=== PATIENT | female | born 1970 | race Caucasian/White ===

== ENCOUNTER 2017-01-22 13:18 | Outpatient (CLI) | payer OTHER ==
[~2017-01-22] VITALS: Ht 152.4 cm; Wt 109.5 kg
[2017-01-22] MEDS ORDERED: AMIT10TA6 PO (13:42)
[2017-01-22] MEDS ORDERED: FER325 PO (13:42)
[2017-01-22] MEDS ORDERED: FLUN8.9H INH (13:42)
[2017-01-22] MEDS ORDERED: ALBU18HF INHALATION (13:42)
[2017-01-22] MEDS ORDERED: ASCO500C7 PO (13:42)
[2017-01-22] MEDS ORDERED: LORA10TA3 PO (13:42)
[2017-01-22 13:43] VITALS: BP 122/77; PULSE 70; RESP 18; Ht 152.4 cm; Wt 109.5 kg
--- NOTE | 2017-01-22 17:35 | CONS ---
Date/Time of Note Date/Time of Note DATE: 01/22/17 TIME: 17:30 Assessment/Plan Assessment/Plan Additional Assessment/Plan [facility] INITIAL OUTPATIENT CONSULTATION NOTE DATE OF CONSULTATION: 01/22/2017 PLACE OF SERVICE: [facility] ASSESSMENT AND PLAN: A very-pleasant 46-year-old lady with newly discovered hypermetabolic lesion in caudate lobe of her liver in the setting of recent diagnosis of appendiceal mucinous neoplasm. It would be somewhat unusual for the appendiceal mucinous neoplasm to have metastasized intrahepatically without obvious evidence of extrahepatic and peritoneal activity. Patient is also relatively early out from her initial surgical intervention, which again would argue against presence of metastatic disease. The described lesions in the MRI report appeared to be in the segment 4a of the liver which is away from the area of hypermetabolic uptake as I interpret the images. The caudate lobe area is not mentioned in the MRI. Because it is still possible that the patient may have intrahepatic metastasis, I have recommended further careful evaluation through the use of endoscopic ultrasound, which would allow us close visualization of the caudate lobe as well as possible fine-needle aspiration biopsy of the area for further clarification of the diagnosis. If this study is negative and we are still concerned about intrahepatic lesions, then a CT- guided or ultrasound-guided percutaneous liver biopsy may be needed. This can be sorted out further in our multidisciplinary tumor board presentation. With regards to the appendiceal mucinous neoplasm, I concur with Dr. Lantigua's assessments and recommendations. I do not recommend further surgical intervention at this time and the patient needs to be under careful surveillance for the next number of years. Of course, if the hepatic issues proved to be appendiceal mucinous neoplasm metastases, this would certainly change in the patient would be eligible for further aggressive therapy, that would be done at a center qualify to do these operations (e.g. [facility] or one of the nearby [facility] that has the program). I explained all of this to the patient (no family present during my discussions with the patient) carefully and answered all her questions to the best my ability. I also spent approximately 15 minutes in extra counseling regarding permanent change in lifestyle towards a healthier approach to food, better education about caloric needs, and importance of incorporation of consistent exercise in patient's daily routine. I believe that the patient understood and also agreed to attempt to implement. With above assessment, I've recommended the followin. Endoscopic ultrasound evaluation of caudate lobe with possible FNA biopsy 2. Multidisciplinary tumor board presentation 3. Further plans after above (e.g. possible need for additional percutaneous liver biopsy if indicated after above) 4. Continue careful follow-up as outlined by Dr. Lantigua 5. Lifestyle change as outlined above Thank you very much for having me involved in the care of this very pleasant patient and wonderful family. If you have any questions, please feel free to contact me at [phone]. Nature of presenting problem: High severity Please note that, given the extensive number of diagnoses or management options , the extensive amount and/or complexity of data needed to be reviewed, and high risk of complications and/or morbidity or mortality, this qualifies as high complexity type of decision-making. Disclaimer: Inadvertent spelling and grammatical errors are likely due to EHR/ dictation software use and do not reflect on the quality of delivered patient care. Also, please note that the electronic time recorded on this node does not necessarily reflect the actual time of the visit. Updated clinical summary: The patient is a very pleasant 46-year-old lady initially referred to [facility] and seen at [facility] for a newly discovered hypermetabolic lesion in caudate lobe of her liver in the setting of recent diagnosis of appendiceal mucinous neoplasm. Comorbidities: 1. Appendiceal mucinous neoplasm. CT scan performed May 2016 at [facility] showed dilated appendix in the right lower quadrant with features concerning for mucocele or appendiceal carcinoma. Status post laparoscopic appendectomy 06/15/[address] Oscar Santiago. 2. BMI 47.2 3. Migraine headaches 4. Asthma 5. Probable left ovarian cyst measuring 5 cm 6. Moderate depression 7. Mild anxiety 8. Left upper lobe lung nodule October 2016. Uncharacterized. 9. Vaginal bleeding after intercourse October 2016. CONSULTATION REQUESTED BY: Brian Lantigua MD HISTORY OF PRESENT ILLNESS: The patient is a very pleasant 46-year-old lady with above-mentioned comorbidities who were kindly asked consult regarding management of newly discovered hypermetabolic lesion in caudate lobe of her liver in the setting of recent diagnosis of appendiceal mucinous neoplasm. Patient originally presented with stabbing right upper quadrant pain since February 2016. CT scan performed May 2016 at [facility] showed dilated appendix in the right lower quadrant with features concerning for mucocele or appendiceal carcinoma. Status post laparoscopic appendectomy 06/15/[address] Oscar Chou. Surgical pathology showed a low- grade appendiceal mucinous neoplasm. There was extruded mucin noted within the wall and focal perforation with mucin at the distal tip. No evidence of invasive adenocarcinoma noted. Proximal margin exhibited extruded mucin within the muscular wall without evidence of adenomatous epithelium. Repeat CT scan of abdomen and pelvis 08/13/2016 at [facility] showed a limited examination secondary to lack of IV contrast, a probable left ovarian cyst measuring 5 cm, subcentimeter mesenteric lymph nodes in the mid and lower abdomen which was nonspecific findings and postsurgical changes adjacent to cecum and appendix surgery. MRI Abdomen October 2016 showed 3 small foci of abnormal T2 prolongation in the right lobe of liver, 8 mm enhancing area in the right lobe of liver. Mild diffuse hepatic steatosis. Note that there was no mention of any lesions in the caudate lobe, which is the area of hypermetabolic finding on the PET/CT. CEA less than 0.5; [id number] 11. No major complaints during my visit with her. No other major issues. ALLERGIES: NO KNOWN DRUG ALLERGIES MEDICATIONS Documented in the electronic records and reviewed by me. Please see the electronic records for details. She reported being on loratadine, ranitidine, meloxicam, ferrous sulfate, and vitamin C. SOCIAL HISTORY: The patient lives with family. Currently single. Has 6 kids and 14 grandchildren. Works as a cook.-[employer];-ETOH (history of alcohol use with binge drinking for 2 years; sober since 2003;-IVDU (history of methamphetamine use, quit 2003) FAMILY HISTORY: Uncle, throat cancer, . Aunt, breast cancer. Brother, history of neck cancer. Nephew, leukemia in his 20s. There are no significant medical, surgical or oncologic issues in the family as reported by the patient or reflected in the chart. REVIEW OF SYSTEMS: Other than mentioned above, there were no other pertinent positives or pertinent negatives in an otherwise complete 14 point review of systems. PHYSICAL EXAMINATION GENERAL: The patient appears to be a very pleasant lady of descent sitting in a chair, appearing stated age,] and otherwise in no acute distress. BMI: 47.2 VITAL SIGNS: AVSS (please also see auto important data if available as well as the electronic records) HEENT: Normocephalic and atraumatic. Extraocular muscles and hearing are grossly intact bilaterally and symmetrically. Sclerae are nonicteric. Oral cavity is clear; oral mucosa appear to be pink and moist. Dentition: fair. NECK: Supple. There is no lymphadenopathy or JVD. There is no submental, submandibular or supraclavicular lymphadenopathy. CHEST: Rises symmetrically with each breath; patient is breathing comfortably. There are no audible wheezes, rales or rhonchi on the gross exam. HEART: Pulse is regular and palpable on the right wrist. Capillary refill is normal. Carotid pulses are palpable bilaterally and symmetrically in the neck. EXTREMITIES: Lower extremities contain no pitting edema around the ankles bilaterally and symmetrically. ABDOMEN: Abdomen is soft, nontender and nondistended but on an protuberant consistent with her BMI. No evidence of ascites, organomegaly, caput medusae, engorged subcutaneous veins, or other abnormalities. There are no peritoneal signs or guarding. SKIN: Appears to be pink and feels warm to touch. NEUROLOGIC: Awake, alert, and follows commands appropriately. LABORATORY DATA: September 2016 [facility]: Creatinine 0.66, albumin 3.6, liver function and injury parameters normal. White blood cell count 6.9, hemoglobin 11.4, platelets 345. IMAGING: See electronic chart and above. Please note that I've personally reviewed all pertinent available images and I agree in general with their overall reported findings. Consultation Date/Type/Reason Admit Date/Time Exam/Review of Systems Vital Signs Vitals Vital Signs Date Time Temp Pulse Resp B/P Pulse Ox O2 Delivery O2 Flow Rate FiO2 01/22/17 13:43 97.9 70 18 122/77 95 Room Air MOISÉS PARK M.D. Jan 22, 2017 17:35
== END 2017-01-22 16:21 | disposition home or self-care (01) ==
LOC: HPC 13:18
PROVIDERS: ATTEND Transplant Surgery
DX: D37.6 Neoplasm of uncertain behavior of liver, gallbladder and bile ducts (principal); C18.1 Malignant neoplasm of appendix
CPT/HCPCS: G0463